=== PATIENT | female | born 1945 | race Caucasian/White ===

== ENCOUNTER → 2019-03-30 | Outpatient (CLI) | payer MEDICARE, OTHER | LOC: M.CT 03-29 13:45 | DX: J84.10 Pulmonary fibrosis, unspecified (principal); K86.89 Other specified diseases of pancreas; N28.1 Cyst of kidney, acquired; K21.9 Gastro-esophageal reflux disease without esophagitis; K59.00 Constipation, unspecified; R33.9 Retention of urine, unspecified; N13.2 Hydronephrosis with renal and ureteral calculous obstruction; M47.814 Spondylosis without myelopathy or radiculopathy, thoracic region; M41.85 Other forms of scoliosis, thoracolumbar region; M62.81 Muscle weakness (generalized); R26.2 Difficulty in walking, not elsewhere classified; R27.8 Other lack of coordination; R41.841 Cognitive communication deficit; I10 Essential (primary) hypertension; D05.11 Intraductal carcinoma in situ of right breast; B96.20 Unspecified Escherichia coli [E. coli] as the cause of diseases classified elsewhere; Z86.711 Personal history of pulmonary embolism ==